=== PATIENT | female | born 1960 | race Caucasian/White ===

== ENCOUNTER → 2023-11-04 | Outpatient (CLI) | payer BC ==
--- NOTE | 2023-11-04 13:58 | P.GSCN ---
History of Present Illness Consult date: 11/04/23 Reason for Consult: History of right breast cancer, 2006 Requesting physician: Darline Ahuja History of present illness: Hanane a 63-year-old female seen in consultation for Darline [place] regarding a prior history of a right breast invasive ductal carcinoma. On 05-20-2007 she underwent a right breast lumpectomy and sentinel node sampling. He was noted to have 2 lymph nodes positive and a 4 cm tumor with positive superior and medial margins. She underwent reexcision of this site on . Her margins were all negative. She was noted to have a 4 cm tumor with 2 of 9 lymph nodes positive. She was ER +10% AK negative HER2 negative [id number]- She underwent chemotherapy; (Cytoxan, Adriamycin, Taxatere) She underwent radiation finishing November 2007 She did not have any hormone therapy She did not have genetic testing Her most recent mammogram and ultrasound were performed on 10-13-23. This was a bilateral digital screening mammogram which was considered to be BI-RADS 0 and a right breast ultrasound was recommended. The right breast ultrasound was performed 10-16-2023 and felt to be BI-RADS 3. At 11:00 there was a shadowing area of dense tissue measuring 1.3 x 1.8 cm. A 6-month Limited right breast ultrasound was recommended. Bilateral mammogram in October 2024. She does not feel any new lumps masses or nodules of concern in either breast. She would like a second opinion secondary to the BI-RADS 3 status of her most recent right breast ultrasound. She is not complaining of any recent nipple discharge. She is not complaining of any trauma or infection in the breast. She has not had any other surgery in the breast other than stated above. Caffeine: 1 cup/day nicotine: none stopped at 18 30 chocolate: Occasional control pills: used for about 10 years, then back on pill for another 3 years, then back on for about 10 year longer; then diagnosed with breast cancer ( dx. at 47) hormones: none Family History: Maternal grandmother: Breast cancer of this diagnosed in her 40s maternal uncle: prostate mother: skin cancer, not melanoma paternal grandmother: tumor paralysed when they tried to remove it, ? type Hormonal History: menarche: 15 G3A1P2 breast fed: yes, first live :25 menopause: with chemotherapy in her 40's hormoens: none Surgical History: Lumpectomy/axillary node dissection 2006, she did have a reexcision for positive margins after the initial lumpectomy Bilateral oophorectomy right eye tear duct surgery, sinus disease Medical History: HTN CT in the past fluid right pleural area dissipated; 2021 Social History: nicoitne: none alcohol: occasional drugs: none Review of Systems - Constitutional Denies fever, Denies weight loss - EENT EENT Comment(s): tear duct blocked right side Ears: right: decreased hearing Ears, nose, mouth and throat: Denies dysphagia - Breasts bilateral: as per HPI - Cardiovascular Denies chest pain, Denies shortness of breath - Respiratory Denies cough, Denies 7 - Gastrointestinal Reports as per HPI - Genitourinary Genitourinary: Denies dysuria, Denies hematuria Menstruation: Reports postmenopausal - Musculoskeletal Reports as per HPI - Integumentary Denies rash, Denies unusual bruising - Neurological Denies headaches, Denies syncope - Psychiatric Reports as per HPI - Endocrine Reports as per HPI - Allergic/Immunologic Reports seasonal allergies Surgical - Exam - General no distress - Eyes normal ocular movement - ENT no hearing loss - Neck trachea midline - Respiratory normal respiratory effort, clear to auscultation - Cardiovascular Heart Sounds: normal: S1, S2 - Abdomen Abdomen: soft, non tender, no guarding, no rigid, no rebound - Integumentary normal turgor - Neurologic no disoriented, no combative - Musculoskeletal normal gait - Psychiatric oriented to time, oriented to person, oriented to place, speech is normal, memory intact Breast Exam: BRA: 40C/D Inspection: right breast post radiation and surgery changes, smaller than left breast Bilateral grade 2 ptosis Right breast: Multi positional exam postradiation/surgical changes from prior lumpectomy, no dominant masses or nodules of concern, tender upper outer quadrant area to examination Right axilla: No adenopathy of concern Left breast: Multi positional exam fibrocystic changes no dominant masses or nodules of concern Left axilla: No adenopathy of concern Fungal infection under both breast Results Most recent mammogram and ultrasound results reviewed the mammogram was , the right breast ultrasound was from 10-16-2023. This is personally going to be reviewed with the radiologist. Assessment and Plan Assessment: Impression: 63-year-old female status post right breast T2 N1 M0 ER low positive AK negative HER2 negative invasive ductal carcinoma 2006, no evidence of any recurrent disease Patient completed chemo and radiation therapy Patient recent right breast radiograph with questionable lesion on the right breast ultrasound recommend repeat right breast ultrasound in 6 months Plan: Personally reviewed mammogram and ultrasound nystatin cream under breast Repeat right breast ultrasound in 6 months with examination at that time Will attempt to get bilateral breast MRI Patient to follow-up sooner any questions or concerns CC: Darline Ahuja
[2023-11-04 14:37] VITALS: BP 145/80; PULSE 73; RESP 17; TEMP 98.7
== END ==
LOC: WWCWWP 12:44
PROVIDERS: ATTEND Surgery
DX: C50.911 Malignant neoplasm of unspecified site of right female breast (principal); Z17.0 Estrogen receptor positive status [ER+]; Z80.3 Family history of malignant neoplasm of breast; Z92.3 Personal history of irradiation; Z92.21 Personal history of antineoplastic chemotherapy; Z48.817 Encounter for surgical aftercare following surgery on the skin and subcutaneous tissue

== ENCOUNTER → 2023-11-10 | Outpatient (CLI) | payer BC ==
--- NOTE | 2023-11-10 10:50 | BMR ---
EXAM DATE: 11/10/2023 EXAM DESCRIPTION: MRI-Breast Bilat (W/WO Contrast) INDICATION: Previous history of right breast cancer, abnormal ultrasound COMPARISON: PRIOR MRIs: None available. Correlation to mammograms: Outside study 10/13/2023. Correlation to ultrasound: Outside study 10/16/2023. CONTRAST: Six cc Gadavist IV gadolinium contrast TECHNIQUE: Multiplanar multisequence MR imaging of both breasts was performed with a dedicated breast coil. Images were obtained before and after administration of IV gadolinium, using the standard breast mass protocol. Computer aided detection was utilized for interpretation. FINDINGS: LMP: Postmenopausal General breast composition: The breast is heterogeneously dense Background parenchymal enhancement: Minimal RIGHT BREAST: The T2 weighted series shows no areas of abnormal signal intensity. Mammographic findings and ultrasound findings in the right breast at 11 o'clock correspond to postsurgical scar. There is no abnormal enhancement. Review of the dynamic series shows no early or abnormal enhancement within the entire breast. LEFT BREAST: The T2 weighted series shows no areas of abnormal signal intensity. Review of the dynamic series shows no early or abnormal enhancement. LYMPH NODES: There is no evidence of internal mammary or axillary adenopathy. Miscellaneous findings:1.2 cm cyst in the left lateral hepatic lobe. Subsegmental atelectasis in the right middle lobe. IMPRESSION: RIGHT BREAST: No MR evidence of malignancy. Mammographic and ultrasound findings correspond to postsurgical scar which demonstrates no abnormal enhancement and is mammographically stable from 08/10/2019. LEFT BREAST: No MR evidence of malignancy. OVERALL ASSESSMENT -- BI- RADS 1: Negative Return to screening mammography is recommended. LYUDMILA
== END | disposition home or self-care (01) ==
LOC: RADMRIMAIN 07:50
PROVIDERS: ATTEND Surgery
DX: R92.8 Other abnormal and inconclusive findings on diagnostic imaging of breast (principal); R92.333 Mammographic heterogeneous density, bilateral breasts; Z85.3 Personal history of malignant neoplasm of breast; Z78.0 Asymptomatic menopausal state
CPT/HCPCS: 77049; A9585

== ENCOUNTER → 2024-04-27 | Outpatient (CLI) | payer BC ==
--- NOTE | 2024-04-27 14:47 | USB ---
Reason for Exam: Clinical finding. Risk Values: Marlin 5 year model risk: 1.0%. NCI Lifetime model risk: 4.6%. Technique: Method: Targeted. Findings: The lateral section of the breast of the right breast, the axilla of the right breast and the retroareolar of the right breast were scanned. There is a hypoechoic area which is taller than wide estimated to measure 2.5 x 1.5 x 1.9 cm. This correlates with the patient's scar and was present on the prior outside ultrasound dated 10/16/2023. Measurements appear similar when compared. 4 the patient complains of pain which is in the outer axillary tail region no discrete ultrasound abnormality is evident. Patient has had a recent mammogram dated 10/13/2023. If additional imaging is required, diagnostic mammography can be performed. Clinical management is recommended. Surgical consultation can be performed. Overall Assessment: Probably benign, BI-RAD 3 Management: Surgical Consultation of the right breast. Diagnostic Mammogram of both breasts in 6 months. A clinical breast exam by your physician is recommended on an annual basis and results should be correlated with mammographic findings. This exam should not preclude additional follow-up of suspicious palpable abnormalities. Results were given to the patient verbally at the time of exam. [facility], , 04/27/2024 2:44 PM. Electronically signed and approved by: Kirk Rivas D.O. Radiologis
== END | disposition home or self-care (01) ==
LOC: RADUSWWP 13:27
PROVIDERS: ATTEND Surgery
DX: N63.10 Unspecified lump in the right breast, unspecified quadrant (principal)

== ENCOUNTER → 2024-05-06 | Outpatient (CLI) | payer BC ==
[2024-05-06 12:33] VITALS: BP 131/79; PULSE 97; RESP 16; TEMP 97.9
--- NOTE | 2024-05-06 12:37 | P.PN ---
Subjective Progress Note Date: 05/06/24 Principal diagnosis: fibrocystic breast abnormal right breast ultrasound History of Present Illness Consult date: 05-06-24 Reason for Consult: History of right breast cancer, 2006 Requesting physician: Darline Ahuja History of present illness: Hanane a 64-year-old female seen in consultation for Darline [place] regarding a prior history of a right breast invasive ductal carcinoma. On 05-20-2007 she underwent a right breast lumpectomy and sentinel node sampling. She was noted to have 2 lymph nodes positive and a 4 cm tumor with positive superior and medial margins. She underwent reexcision of this site on . Her margins were all negative. She was noted to have a 4 cm tumor with 2 of 9 lymph nodes positive. She was ER +10% [place] negative HER2 negative [id number]-[id number]- She underwent chemotherapy; (Cytoxan, Adriamycin, Taxatere) She underwent radiation finishing November 2007 She did not have any hormone therapy She did not have genetic testing Her most recent mammogram and ultrasound were performed on 10-13-23. This was a bilateral digital screening mammogram which was considered to be BI-RADS 0 and a right breast ultrasound was recommended. The right breast ultrasound was performed 10-16-2023 and felt to be BI-RADS 3. At 11:00 there was a shadowing area of dense tissue measuring 1.3 x 1.8 cm. A 6-month Limited right breast ultrasound was recommended. Bilateral mammogram in October 2024. 04-27-24 right breast ultrasound: 2.5 by 1.5 cm taller than wide area right breast similar to 10-16-23 ultrasound She does not feel any new lumps masses or nodules of concern in either breast. She wanted a second opinion secondary to the BI-RADS 3 status of her most recent right breast ultrasound. She is not complaining of any recent nipple discharge. She is not complaining of any trauma or infection in the breast. She has not had any other surgery in the breast other than stated above. bilateral MRI of the breast 11-10-23 no evidence of malignancy BIRAD 1 ultrasound of 04-27-[address] Vazquez recommend a biopsy of the taller than wide lesioin Caffeine: 1 cup/day nicotine: none stopped at 18 30 chocolate: Occasional control pills: used for about 10 years, then back on pill for another 3 years, then back on for about 10 year longer; then diagnosed with breast cancer ( dx. at 47) hormones: none Family History: Maternal grandmother: Breast cancer of this diagnosed in her 40s maternal uncle: prostate mother: skin cancer, not melanoma paternal grandmother: tumor paralysed when they tried to remove it, ? type Hormonal History: menarche: 15 G3A1P2 breast fed: yes, first live :25 menopause: with chemotherapy in her 40's hormoens: none Surgical History: Lumpectomy/axillary node dissection 2006, she did have a reexcision for positive margins after the initial lumpectomy Bilateral oophorectomy right eye tear duct surgery, sinus disease Medical History: HTN CT in the past fluid right pleural area dissipated; 2021 Social History: nicoitne: none alcohol: occasional drugs: none Review of Systems - Constitutional Denies fever, Denies weight loss - EENT EENT Comment(s): tear duct blocked right side Ears: right: decreased hearing Ears, nose, mouth and throat: Denies dysphagia - Breasts bilateral: as per HPI - Cardiovascular Denies chest pain, Denies shortness of breath - Respiratory Denies cough - Gastrointestinal Reports as per HPI - Genitourinary Genitourinary: Denies dysuria, Denies hematuria Menstruation: Reports postmenopausal - Musculoskeletal Reports as per HPI - Integumentary Denies rash, Denies unusual bruising - Neurological Denies headaches, Denies syncope - Psychiatric Reports as per HPI - Endocrine Reports as per HPI - Allergic/Immunologic Reports seasonal allergies Objective - Constitutional General appearance: Present: cooperative - EENT Eyes: Present: EOMI ENT: Present: hearing grossly normal - Neck Neck: Present: normal ROM - Respiratory Respiratory: bilateral: CTA - Cardiovascular Rhythm: regular Heart sounds: normal: S1, S2 - Integumentary Integumentary: Present: normal turgor - Musculoskeletal Musculoskeletal: Present: gait normal - Psychiatric Psychiatric: Present: A&O x's 3, appropriate affect, intact judgment & insight - Additional findings Additional findings: Breast Exam: BRA: 40C/D Inspection: right breast post radiation and surgery changes, smaller than left breast Bilateral grade 2 ptosis Right breast: Multi positional exam postradiation/surgical changes from prior lumpectomy, no dominant masses or nodules of concern, tender upper outer quadrant area to examination Right axilla: No adenopathy of concern Left breast: Multi positional exam fibrocystic changes no dominant masses or nodules of concern Left axilla: No adenopathy of concern Assessment and Plan Assessment: Impression: 64-year-old female status post right breast T2 N1 M0 ER low positive [place] negative HER2 negative invasive ductal carcinoma 2006, no evidence of any recurrent disease Patient completed chemo and radiation therapy Right breast ultrasound on 04-27-2024 reveals a 2.5 x 1.9 cm taller than wide lesion near the area of the scar this is personally reviewed and discussed with radiologist and core biopsy recommended Plan: Personally reviewed mammogram and ultrasound Core biopsy taller than wide lesion right breast Follow-up after core biopsy Patient to follow-up sooner any questions or concerns CC: Darline Ahuja
== END ==
LOC: WWCWWP 11:28
PROVIDERS: ATTEND Surgery
DX: N60.12 Diffuse cystic mastopathy of left breast (principal); Z85.3 Personal history of malignant neoplasm of breast; Z80.3 Family history of malignant neoplasm of breast; Z92.3 Personal history of irradiation; Z92.21 Personal history of antineoplastic chemotherapy

== ENCOUNTER → 2024-05-17 | Day surgery (SDC) | payer BC ==
--- NOTE | 2024-05-19 14:04 | MM ---
Reason for Exam: Post Procedure Mammogram. Last screening mammogram was performed 8 month(s) ago. Patient History: Menarche at age 16. First Full-Term at age 24. Postmenopausal. Patient has history of breast feeding. Breast cancer, right, age 48. Previous chest radiation therapy at age 48. Previous chemotherapy at age 48. 05/29/2007, Lumpectomy on the Right side. 06/29/2007, Chemotherapy. 12/28/2007, Radiation Therapy on the right side. Prior Study Comparison: 08/27/2021 Bilateral MG 3D screening mammo w/cad, Unknown. 10/06/2022 Bilateral MG 3D screening mammo w/cad, Unknown. 10/13/2023 Bilateral MG 3D screening mammo w/cad, Unknown. 11/10/2023 Bilateral MR breast bilat wo/w con, [facility]. 04/27/2024 Right US breast limited RT, [facility]. Tissue Density: Right: The breasts are heterogeneously dense, which may obscure small masses. Pathology Description: Location: 11 o'clock. Marker Left Behind. Approach: Oblique Needle Type: Mammotome Cores: 11 Gauge: 13 The procedure of ultrasound guided core biopsy was explained to the patient. Benefits, alternatives, and risks were discussed. An informed consent was then obtained. The focal area of shadowing 11:00 position, 6 images from the nipple is identified and targeted for biopsy. The patient was placed in supine positioning for imaging and for the procedure. The overlying skin was prepped and draped in usual sterile fashion. Lidocaine buffered with bicarbonate was used as anesthetic into the skin and subcutaneous tissue up to area of concern in the 11:00 right breast. Under ultrasound guidance, a 13-gauge vacuum-assisted mammotome Elite biopsy gun was used to obtain a total of 11 core samples. The area was extremely dense making it difficult to advance the mammotome Elite device. Following this, a Hydromark coil clip was left in lesion. The patient tolerated the procedure well without any immediate complication. The patient was kept in the radiology department for short stay after the procedure and then discharged home in stable condition. Postprocedure mammogram: The patient was transferred to mammography for physician ordered post procedure mammogram for clip placement verification. Post procedure mammogram demonstrates appropriate placement of clip in the posterior upper-outer quadrant at the site of distortion, likely excisional scar. IMPRESSION: Successful, uncomplicated ultrasound guided core biopsy of area of concern in the 11:00 right breast. The area may correspond to dense lumpectomy scar. Full pathology results to follow. [facility], , 05/17/2024 2:05 PM. Pathology Results: Result: Benign. Pathology and radiology were reviewed. Findings are concordant. RIGHT BREAST, 11:00, ULTRASOUND GUIDED CORE BIOPSY: Sclerotic fibrocollagenous scar with focal histiocytosis and rare microcalcification (see note). Notes Per EMR, it is noted that recent ultrasound and MRI findings correlate with and correspond to scar. Histologic findings correlate with these imaging studies. There are no features of malignancy. Overall Assessment: Benign Assessment: MG diagnostic mammo RT wo CAD - Right: Benign, BI-RAD 2. Management: Diagnostic Mammogram of the right breast in 6 months. Electronically signed and approved by: Celsa Caceres M.D. Radiologist
== END ==
LOC: RADUSWWP 12:12
PROVIDERS: ATTEND Surgery
DX: L90.5 Scar conditions and fibrosis of skin (principal); R92.8 Other abnormal and inconclusive findings on diagnostic imaging of breast; Z78.0 Asymptomatic menopausal state; Z92.3 Personal history of irradiation; Z85.3 Personal history of malignant neoplasm of breast
CPT/HCPCS: 88305; 77065; 19083; A4648

== ENCOUNTER → 2024-06-03 | Outpatient (CLI) | payer BC ==
[2024-06-03 12:03] VITALS: BP 155/76; PULSE 69; RESP 16; TEMP 97.4
--- NOTE | 2024-06-03 12:15 | P.PN ---
Subjective Progress Note Date: 06/03/24 06-03-24 Hanane a 64-year-old female seen in consultation for Darline Birmingham regarding a prior history of a right breast invasive ductal carcinoma. On 05-20-2007 she underwent a right breast lumpectomy and sentinel node sampling. She was noted to have 2 lymph nodes positive and a 4 cm tumor with positive superior and medial margins. She underwent reexcision of this site on . Her margins were all negative. She was noted to have a 4 cm tumor with 2 of 9 lymph nodes positive. She was ER +10% NV negative HER2 negative [id number]- She underwent chemotherapy; (Cytoxan, Adriamycin, Taxatere) She underwent radiation finishing November 2007 She did not have any hormone therapy She did not have genetic testing Her most recent mammogram and ultrasound were performed on 10-13-23. This was a bilateral digital screening mammogram which was considered to be BI-RADS 0 and a right breast ultrasound was recommended. The right breast ultrasound was performed 10-16-2023 and felt to be BI-RADS 3. At 11:00 there was a shadowing area of dense tissue measuring 1.3 x 1.8 cm. A 6-month Limited right breast ultrasound was recommended. Bilateral mammogram in October 2024. 04-27-24 right breast ultrasound: 2.5 by 1.5 cm taller than wide area right breast similar to 10-16-23 ultrasound She did not feel any new lumps masses or nodules of concern in either breast. She wanted a second opinion secondary to the BI-RADS 3 status of her most recent right breast ultrasound. She was not complaining of any recent nipple discharge. She was not complaining of any trauma or infection in the breast. She had not had any other surgery in the breast other than stated above. bilateral MRI of the breast 11-10-23 no evidence of malignancy BIRAD 1 ultrasound of 04-27-[address] Vazquez recommend a biopsy of the taller than wide andrez patient on 05-17-24 underwent an ultrasound core biopsy of the lesion in the right breast, pathology was benign concordant. Caffeine: 1 cup/day nicotine: none stopped at 18 30 chocolate: Occasional control pills: used for about 10 years, then back on pill for another 3 years, then back on for about 10 year longer; then diagnosed with breast cancer ( dx. at 47) hormones: none Family History: Maternal grandmother: Breast cancer of this diagnosed in her 40s maternal uncle: prostate mother: skin cancer, not melanoma paternal grandmother: tumor paralysed when they tried to remove it, ? type Hormonal History: menarche: 15 G3A1P2 breast fed: yes, first live :25 menopause: with chemotherapy in her 40's hormoens: none Surgical History: Lumpectomy/axillary node dissection 2006, she did have a reexcision for positive margins after the initial lumpectomy Bilateral oophorectomy right eye tear duct surgery, sinus disease Medical History: HTN CT in the past fluid right pleural area dissipated; 2021 Social History: nicoitne: none alcohol: occasional drugs: none Review of Systems - Constitutional Denies fever, Denies weight loss - EENT EENT Comment(s): tear duct blocked right side Ears: right: decreased hearing Ears, nose, mouth and throat: Denies dysphagia - Breasts bilateral: as per HPI - Cardiovascular Denies chest pain, Denies shortness of breath - Respiratory Denies cough - Gastrointestinal Reports as per HPI - Genitourinary Genitourinary: Denies dysuria, Denies hematuria Menstruation: Reports postmenopausal - Musculoskeletal Reports as per HPI - Integumentary Denies rash, Denies unusual bruising - Neurological Denies headaches, Denies syncope - Psychiatric Reports as per HPI - Endocrine Reports as per HPI - Allergic/Immunologic Reports seasonal allergies Objective - Constitutional General appearance: Present: cooperative - EENT Eyes: Present: EOMI ENT: Present: hearing grossly normal - Neck Neck: Present: normal ROM - Respiratory Respiratory: bilateral: CTA - Cardiovascular Rhythm: regular Heart sounds: normal: S1, S2 - Integumentary Integumentary: Present: normal turgor - Musculoskeletal Musculoskeletal: Present: gait normal - Psychiatric Psychiatric: Present: A&O x's 3, appropriate affect, intact judgment & insight - Additional findings Additional findings: Breast Exam: BRA: 40C/D Inspection: right breast post radiation and surgery changes, smaller than left breast Bilateral grade 2 ptosis Right breast: Multi positional exam postradiation/surgical changes from prior lumpectomy, no dominant masses or nodules of concern, tender upper outer quadrant area to examination Right axilla: No adenopathy of concern Left breast: Multi positional exam fibrocystic changes no dominant masses or nodules of concern Left axilla: No adenopathy of concern Assessment and Plan Assessment: Impression: 64-year-old female status post right breast T2 N1 M0 ER low positive NV negative HER2 negative invasive ductal carcinoma 2006, no evidence of any recurrent disease Patient completed chemo and radiation therapy Right breast ultrasound on 04-27-2024 reveals a 2.5 x 1.9 cm taller than wide lesion near the area of the scar this is personally reviewed and discussed with radiologist and core biopsy recommended Plan: Personally reviewed mammogram and ultrasound Core biopsy taller than wide lesion right breast Follow-up after core biopsy Patient to follow-up sooner any questions or concerns CC: Darline Ahuja Additional CC's: Darline Ahuja Objective - Vital Signs Vital signs: Vital Signs Temp 97.4 F L 06/03/24 12:00 Pulse 69 06/03/24 12:00 Resp 16 06/03/24 12:00 BP 155/76 06/03/24 12:00 Pulse Ox 100 06/03/24 12:00 FiO2 Intake & Output 06/02/24 06/03/24 06/03/24 18:59 06:59 18:59 Weight 62.596 kg - Constitutional General appearance: Present: cooperative - EENT Eyes: Present: EOMI ENT: Present: hearing grossly normal - Neck Neck: Present: normal ROM - Respiratory Respiratory: bilateral: CTA - Cardiovascular Heart sounds: normal: S1, S2 - Integumentary Integumentary: Present: normal turgor - Musculoskeletal Musculoskeletal: Present: gait normal - Psychiatric Psychiatric: Present: A&O x's 3, appropriate affect, intact judgment & insight - Additional findings Additional findings: Breast Exam: BRA: 40C/D Inspection: right breast post radiation and surgery changes, smaller than left breast Bilateral grade 2 ptosis Right breast: Multi positional exam postradiation/surgical changes from prior lumpectomy, no dominant masses or nodules of concern, tender upper outer quadrant area to examination Right axilla: No adenopathy of concern Left breast: Multi positional exam fibrocystic changes no dominant masses or nodules of concern Left axilla: No adenopathy of concern Assessment and Plan Assessment: Impression: 64-year-old female status post right breast T2 N1 M0 ER low positive NV negative HER2 negative invasive ductal carcinoma 2006, no evidence of any recurrent disease Patient completed chemo and radiation therapy Right breast ultrasound on 04-27-2024 reveals a 2.5 x 1.9 cm taller than wide lesion near the area of the scar this is personally reviewed and discussed with radiologist and core biopsy recommended; done on 05-17-24 benign concordant Plan: bilateral mammogram October 2024 with ultrasound of the right breast and an appo intment CC: Darline Ahuja
== END ==
LOC: WWCWWP 10:38
PROVIDERS: ATTEND Surgery
DX: Z48.817 Encounter for surgical aftercare following surgery on the skin and subcutaneous tissue (principal); Z85.3 Personal history of malignant neoplasm of breast; Z92.3 Personal history of irradiation; Z92.21 Personal history of antineoplastic chemotherapy; Z80.3 Family history of malignant neoplasm of breast

== ENCOUNTER → 2024-11-02 | Outpatient (CLI) | payer BC ==
--- NOTE | 2024-11-02 11:54 | MM ---
Reason for Exam: Hx of breast cancer, conservation therapy. Last mammogram was performed 1 year(s) and 1 month(s) ago. Patient History: Menarche at age 16. First Full-Term at age 24. Postmenopausal. Patient has history of breast feeding. Breast cancer, right, age 48. Previous chest radiation therapy at age 48. Previous chemotherapy at age 48. 05/29/2007, Lumpectomy on the Right side. 05/17/2024, Benign US biopsy breast VAD RT on the right side. 06/29/2007, Chemotherapy. 12/28/2007, Radiation Therapy on the right side. Maternal grandmother had breast cancer under age 50. Prior Study Comparison: 08/27/2021 Bilateral MG 3D screening mammo w/cad, Unknown. 10/06/2022 Bilateral MG 3D screening mammo w/cad, Unknown. 10/13/2023 Bilateral MG 3D screening mammo w/cad, Unknown. 05/17/2024 Right MG diagnostic mammo RT wo CAD, [facility]. Tissue Density: There are scattered areas of fibroglandular density. Findings: Analyzed By CAD. Right breast biopsy clip with post lumpectomy changes. No new suspicious masses, calcifications or distortions. Overall Assessment: Incomplete: need additional imaging evaluation, BI-RAD 0 Management: Diagnostic Breast Ultrasound of the right breast. Benign-appearing mammography. Precautionary follow up ultrasound ordered will be performed. Results were given to the patient verbally at the time of exam. Patient should continue monthly self-breast exams. A clinical breast exam by your physician is recommended on an annual basis. This exam should not preclude additional follow-up of suspicious palpable abnormalities. Note on Marlin scores and lifetime risk: 1. A Marlin score greater than 3% is considered moderate risk. If this is the case, consider specialist referral to assess eligibility for a risk reducing agent. 2. If overall lifetime risk for the development of breast cancer is 20% or higher, the patient may qualify for future screening with alternating mammogram and breast MRI. [facility], , 11/02/2024 11:50 AM. Electronically signed and approved by: Pepe Sam DO
--- NOTE | 2024-11-02 12:27 | USB ---
Reason for Exam: Additional evaluation requested from abnormal screening. Patient History: Menarche at age 16. First Full-Term at age 24. Postmenopausal. Patient has history of breast feeding. Breast cancer, right, age 48. Previous chest radiation therapy at age 48. Previous chemotherapy at age 48. 05/29/2007, Lumpectomy on the Right side. 05/17/2024, Benign US biopsy breast VAD RT on the right side. 06/29/2007, Chemotherapy. 12/28/2007, Radiation Therapy on the right side. Maternal grandmother had breast cancer under age 50. Technique: Method: Targeted. Prior Study Comparison: 10/06/2022 Bilateral MG 3D screening mammo w/cad, Unknown. 10/13/2023 Bilateral MG 3D screening mammo w/cad, Unknown. 05/17/2024 Right MG diagnostic mammo RT wo CAD, [facility]. Findings: The upper outer quadrant of the right breast, the axilla of the right breast and the retroareolar of the right breast were scanned. Technique utilized:US breast limited RT Image; Ultrasound imaging of: All 4 quadrants, the retroareolar region and axilla. No evidence for organizing fluid collection or mass. Right breast 11:00 6 cm from nipple area of shadowing likely representing scarring from prior surgery. Negative right axilla. Overall Assessment: Benign, BI-RAD 2 Management: Screening Mammogram of both breasts in 1 year. A clinical breast exam by your physician is recommended on an annual basis and results should be correlated with mammographic findings. This exam should not preclude additional follow-up of suspicious palpable abnormalities. Results were given to the patient verbally at the time of exam. [facility], , 11/02/2024 12:24 PM. Electronically signed and approved by: Pepe Sam DO
== END | disposition home or self-care (01) ==
LOC: RADMAMWWP 11:18
PROVIDERS: ATTEND Surgery
DX: R92.8 Other abnormal and inconclusive findings on diagnostic imaging of breast (principal); R92.323 Mammographic fibroglandular density, bilateral breasts; Z78.0 Asymptomatic menopausal state; Z80.3 Family history of malignant neoplasm of breast; Z85.3 Personal history of malignant neoplasm of breast
CPT/HCPCS: 77062; 77066